=== PATIENT | female | born 1935 | race Caucasian/White ===

== ENCOUNTER 2017-03-26 13:59 | Day surgery (SDC) | payer MEDICARE, BC ==
[~2017-03-26 13:59] MED LIST: ASPI81 PO; ATEN-102 PO; CELE200 PO; CLOP75 PO; DILTCD240 PO; FENO50TA PO; LEVEMIR SC; LEVO50TA4 PO; LORA0.5T PO; NIAC500 PO; NOVOLOG SQ; NOVOLOGP2 SQ
[2017-03-26 14:28] VITALS: BP 142/58; PULSE 58; RESP 20; TEMP 97.5; O2SAT 100
[2017-03-26] MEDS ORDERED: HYDR-3516 PO (14:43)
[2017-03-26] MEDS ORDERED: DILT0.05 PO (14:43)
[2017-03-26] MEDS ORDERED: COLL30T TOPICAL (14:43)
[2017-03-26] MEDS ORDERED: VITATAB11 (14:43)
[2017-03-26] MEDS ORDERED: METO1TAB9 PO (14:43)
[2017-03-26] MEDS ORDERED: COQ150CA (14:43)
[2017-03-26] MEDS ORDERED: LEVEMIR SQ ×2 (14:43)
[2017-03-26] MEDS ORDERED: LORA-392 PO (14:43)
[2017-03-26] MEDS ORDERED: ZANT300T PO (14:43)
[2017-03-26] MEDS ORDERED: PLAV75TA29 PO (14:43)
[2017-03-26] MEDS ORDERED: VITA500T4 PO (14:43)
[2017-03-26] MEDS ORDERED: LEVO75TA3 PO (14:43)
[2017-03-26] MEDS ORDERED: CHOL10008 PO (14:43)
[2017-03-26] MEDS ORDERED: ASPI-516 CHEW (14:43)
--- NOTE | 2017-03-26 16:26 | PD.RAD ---
Radiology Post PICC Prog Note Pre Procedure Diagnosis: (1) Osteomyelitis (2) Lack of intravenous access Post Procedure Diagnosis: (1) Osteomyelitis (2) Lack of intravenous access Procedure: Right PICC line placement Procedure Date: Mar 26, 2017 Supervising Radiologist Cm Burgess Proceduralist/Assist: Maria T Rodas, RT(R)(), Caitlin Coreas, RT(R) Device Side: Right Slovak: 4 single lumen Catheter: Power PICC Plan of Activity Patient to Unit: Nursing Unit Patient Condition: Good PICC line can be used immediately Cm Burgess MD Mar 26, 2017 16:26
[2017-03-26] MEDS ORDERED: SODIUM CHLORIDE 0.9% FLUSH 10 ML FLUSH IVF PRN ×2 (16:30)
[2017-03-27] MEDS ORDERED: SODIUM CHLORIDE 0.9% FLUSH 10 ML FLUSH IVF SCH (09:00)
--- NOTE | 2017-03-27 13:19 | RADRPT ---
EXAM DATE/TIME: 03/26/2017 14:31 [place] COMPARISON: No previous studies available for comparison. INDICATIONS : Patient presents with osteomylitis and is in need of a PICC placement. MEDICAL HISTORY : DM, HTN, PVD, FX LT Ankle, LT Ankle wound, Osteomylitis, Hypothyroid SURGICAL HISTORY : Vascular procedures ENCOUNTER: Initial ACUITY: 3 days PAIN SCORE: 5/10 LOCATION: Left foot FLUORO TIME: 0.2 minutes IMAGE SERIES: 3 ACCESS: Right basilic vein DEVICE(S): 1.) 4 Hungarian single lumen 35 cm Xcela Power PICC PROCEDURE : 1. Ultrasound guidance for venous catheterization. 2. Fluoroscopic guidance. 3. Ultrasound & fluoroscopic guided central venous Power PICC line placement. The risks, benefits and alternatives to the procedure were explained and verbal and written consent w as obtained. The site was prepped in sterile fashion. Full sterile technique was used, including ca p, mask, sterile gloves and gown and a large sterile sheet. Hand hygiene and 2% chlorhexidine prep w as utilized per protocol for cutaneous antisepsis with appropriate dry time for site. Sterile gel a nd sterile probe cover were utilized for ultrasound guidance. The skin and subcutaneous tissues wer e infiltrated with local anesthetic solution. Under direct ultrasound guidance, a suitable vein was accessed and a measuring guidewire was introduc ed and positioned in the central venous system. The ultrasound images depicting access guidance were saved and stored to PACS for permanent record. A Power Injectable PICC line was cut to prescribed length and introduced, positioned with tip at the cavoatrial junction level. The line was flushed and secured per protocol. CONCLUSION: 1. Uncomplicated central venous Power PICC line placement. 2. The PICC line can be used immediately. Cm Burgess MD on March 27, 2017 at 13:16 Board Certified Radiologist. This report was verified electronically.
== END 2017-03-26 16:00 | disposition home or self-care (01) ==
LOC: HROP 13:59 → HRIP 13:59 → HROP 16:00
PROVIDERS: ATTEND Specialist
DX: Z45.2 Encounter for adjustment and management of vascular access device (principal); M86.672 Other chronic osteomyelitis, left ankle and foot; I10 Essential (primary) hypertension; E03.9 Hypothyroidism, unspecified
CPT/HCPCS: 36569; 76937; 77001; C1751; J1642

== ENCOUNTER 2018-01-18 19:59 | Observation (INO) ==
[2018-01-18] MEDS ORDERED: Morphine Sulfate Inj 2 MG/ML Vial IV.PUSH ONE ×2 (20:32→21:37)
[2018-01-18] MEDS ORDERED: Sodium Chlor 0.9% Inj 250 ML IV.SIG ONE (20:33)
--- NOTE | 2018-01-18 20:57 | XR ---
EXAM DATE: 01/18/2018 8:32 PM EDT AGE/SEX: 82 years / Female INDICATIONS: Left ankle osteomyelitis, recent fall today. CLINICAL DATA: This is the patient's initial encounter. Patient reports that signs and symptoms have been present for 1 day and indicates a pain score of 10/10. MEDICAL/SURGICAL HISTORY: . Left foot fracture, osteomyelitis from cast. None. COMPARISON: . FINDINGS: AP, lateral and oblique views of the left ankle were obtained and demonstrate diffuse moderate to sev ere osteopenia. There is an acute mildly comminuted fracture deformity involving the distal tibia naomy roximately 8 cm above the level of the ankle mortise. There is also a nondisplaced comminuted fractur e the distal fibula located approximately 3 cm above the level of the ankle mortise. Degenerative gabby nges are noted involving the tibiotalar joint with sclerosis and mild narrowing. Degenerative changes are present throughout the mid hindfoot. There is a moderate-sized spur off the inferior calcaneus a t the site of attachment. Fibrosis. CONCLUSION: 1. Fractures of the distal tibia and fibula. 2. Moderate to severe osteopenia. Electronically signed by: Torey Vieyra MD 01/18/2018 8:56 PM EDT
--- NOTE | 2018-01-18 21:02 | XR ---
EXAM DATE: 01/18/2018 8:32 PM EDT AGE/SEX: 82 years / Female INDICATIONS: Left tibia pain after fall. CLINICAL DATA: This is the patient's initial encounter. Patient reports that signs and symptoms have been present for 1 day and indicates a pain score of 10/10. MEDICAL/SURGICAL HISTORY: . 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 None. COMPARISON: [facility], ANKLE COMPLETE LEFT MIN 3V, 01/18/2018. . FINDINGS: AP and lateral views of the left tibia and fibula were obtained and demonstrate a mildly comminuted f racture deformity involving the junction of the mid and distal fibula with only mild distraction of t he fracture fragments and no abnormal angulation. There is also mildly comminuted fracture deformity of the more distal fibula proximally several centimeters from the ankle mortise. Proximal tibia and f ibula are intact in appearance. There is diffuse moderate osteopenia. There is apparent old fracture deformity involving the proximal fibula. Vascular calcifications are present. There is mild soft tiss ue swelling. CONCLUSION: 1. Mildly comminuted fracture deformity at the junction of the mid and distal two thirds of the tibi a. 2. Mildly comminuted fracture the more distal fibula. 3. Apparent old fracture deformity of the proximal fibula. 4. Moderate osteopenia. Electronically signed by: Torey Vieyra MD 01/18/2018 9:01 PM EDT
--- NOTE | 2018-01-18 21:18 | ED ---
HPI General Chief Complaint: Extremity Injury, Lower Stated Complaint: Medical / [employer] Time Seen by Provider: 01/18/18 20:23 Source: patient Mode of arrival: EMS Limitations: no limitations History of Present Illness HPI Narrative: 82 YO F with PMH of CHF, DM, HTN presents to the ED via EMS for evaluation of 1010 left leg pain. Onset just before arrival. NO alleviating or exacerbating factors reported. The patient states that she is wheelchair bound 2 /2 ankle fracture and subsequent osteomyelitis. She states that she was sitting on the edge of the bed, reaching to put clothes away when she slid and fell. She states that she was able to partially catch herself, but reports hearing a crack with the fall. She denies hitting her head or LOC. She denies other pains or orthopedic injury. She states that she called her home health nurse who called EMS. She is unsure what medications that she takes, states that her daughter is OTW with that info. Related Data Home Medications Medication Instructions Recorded Confirmed Unable to Obtain Home Meds 01/18/18 01/18/18 Allergies Allergy/AdvReac Type Severity Reaction Status Date / Time Penicillins Allergy Agitation Verified 01/18/18 20:19 Wihubzv-Omz-Uad Reductase Allergy Abdominal Verified 01/18/18 20:19 Inhibitor Pain Review of Systems ROS: all other systems reviewed are negative [facility] Medical History Medical History Diabetes mellitus (Acute) History of stent insertion of renal artery (Acute) Hypertension (Acute) Myocardial infarct (Acute) Surgical History Surgical History H/O heart artery stent (Acute) Social History Social History Second Hand Smoke Exposure: No Smoking Status: Never smoker How Often Do You Have a Drink Containing Alcohol: Never Recent Travel in [facility] within the Last 8 Weeks: No Recent Out of Country Travel within the Last 8 Weeks: No Immunization History Tetanus Immunization: Unsure Exam Narrative Exam Narrative: GENERAL: Well-nourished, well-developed, pleasant white female in no acute distress. SKIN: Focused skin assessment warm/dry. HEAD: Atraumatic. Normocephalic. EYES: Pupils equal and round. No scleral icterus. No injection or drainage. ENT: No nasal bleeding or discharge. Mucous membranes pink and moist. NECK: Trachea midline. No JVD. CARDIOVASCULAR: Regular rate and rhythm. No murmur appreciated. RESPIRATORY: No accessory muscle use. Clear to auscultation. Breath sounds equal bilaterally. GASTROINTESTINAL: Abdomen soft, non-tender, nondistended. Hepatic and splenic margins not palpable. MUSCULOSKELETAL: No obvious deformities. No clubbing. No cyanosis. No edema. Focused left lower extremity exam: Palpable DP pulse. Patient is able to wiggle the toes, neurovascularly intact distally. NEUROLOGICAL: Awake and alert. No obvious cranial nerve deficits. Motor grossly within normal limits. Normal speech. PSYCHIATRIC: Appropriate mood and affect; insight and judgment normal. Course Initial Documented Vital Signs Temperature 98.5 F 01/18/18 20:14 Pulse Rate 95 H 01/18/18 20:14 Respiratory Rate 16 01/18/18 20:14 Blood Pressure 198/80 H 01/18/18 20:14 Pulse Oximetry 96 01/18/18 20:14 Last Documented Vital Signs Temperature 98.5 F 01/18/18 20:14 Pulse Rate 95 H 01/18/18 20:14 Respiratory Rate 16 01/18/18 20:14 Blood Pressure 198/80 H 01/18/18 20:14 Pulse Oximetry 96 01/18/18 20:14 Medical Decision Making MDM Narrative Medical decision making narrative: 82-year-old female with PMH of HTN, DM, CHF presents the ED via EMS for evaluation of 10 out of 10 left leg pain. Onset just before arrival when the patient slid out of the bed falling onto her left leg. She states that she has been nonambulatory on the left leg for approximately 1 year secondary to ankle fracture and subsequent osteomyelitis. She reports hearing a snap at the time. Patient arrives with the leg in a cardboard splint. She is able to wiggle the toes and is neurovascularly intact distally. Patient was administered 2 mg morphine, 250 mL's normal saline. X- rays confirm comminuted tibia and fibula fractures. I spoke with Dr. Ibarra who requests that the patient be admitted to the medicine service and made NPO at midnight. He plans surgery tomorrow. The patient was placed in a splint by the orthopedic techs. I spoke with Dr. Tiwari who agrees to accept the patient to the medicine service. Please see medicine and ortho notes for disposition. Medical Screen Exam Complete: Yes Emergency Medical Condition: Yes Differential Diagnosis Differential Diagnosis: Tibia fracture versus fibular fracture versus osteomyelitis versus fall from standing versus other Lab Data Result diagrams: 01/18/18 21:00 01/18/18 21:00 Lab Results 01/18/18 01/18/18 Range/Units 21:00 21:00 WBC 10.2 (4.0-11.0) th/mm3 RBC 4.25 (4.00-5.30) mil/mm3 Hgb 11.6 (11.6-15.3) gm/dL Hct 36.6 (35.0-46.0) % MCV 86.0 (80.0-100.0) fL MCH 27.4 (27.0-34.0) pg MCHC 31.9 L (32.0-36.0) % RDW 16.7 (11.6-17.2) % Plt Count 276 (150-450) th/mm3 MPV 8.3 (7.0-11.0) fL Neut % (Auto) 63.2 (16.0-70.0) % Lymph % (Auto) 25.5 (9.0-44.0) % [place] % (Auto) 7.6 (0.0-8.0) % Eos % (Auto) 3.3 (0.0-4.0) % Baso % (Auto) 0.4 (0.0-2.0) % Neut # (Auto) 6.4 (1.8-7.7) th/mm3 Lymph # (Auto) 2.6 (1.0-4.8) th/mm3 [place] # (Auto) 0.8 (0.0-0.9) th/mm3 Eos # (Auto) 0.3 (0.0-0.4) th/mm3 Baso # (Auto) 0.0 (0.0-0.2) th/mm3 WBC Differential . Differential Comment Auto diff final Sodium 137 (136-145) meq/L Potassium 3.8 (3.5-5.1) meq/L Chloride 103 (98-107) meq/L Carbon Dioxide 25.7 (21.0-32.0) meq/L Anion Gap 8 (5-15) meq/L BUN 30 H (7-18) mg/dL Creatinine 1.55 H (0.50-1.00) mg/dL Estimated GFR 32 L (>89) mL/min Random Glucose 99 (74-106) mg/dL Calcium 8.9 (8.5-10.1) mg/dL Total Bilirubin 0.3 (0.2-1.0) mg/dL AST 14 L (15-37) U/L ALT 17 (10-53) U/L Alkaline Phosphatase 86 (45-117) U/L Total Protein 7.5 (6.4-8.2) g/dL Albumin 3.3 L (3.4-5.0) g/dL Imaging Data Radiologist's impression: Ankle X-Ray 01/18/18 20:32 CONCLUSION: 1. Fractures of the distal tibia and fibula. 2. Moderate to severe osteopenia. Tibia/Fibula X-Ray 01/18/18 20:32 CONCLUSION: 1. Mildly comminuted fracture deformity at the junction of the mid and distal two thirds of the tibia. 2. Mildly comminuted fracture the more distal fibula. 3. Apparent old fracture deformity of the proximal fibula. 4. Moderate osteopenia. Chest X-Ray 01/18/18 21:05 CONCLUSION: Minimal basilar atelectasis. No effusion or pneumothorax. ECG Data Attestation: I personally reviewed and interpreted this ECG as follows: (Rate 73 , sinus rhythm. OR interval 203, QRS 99, QTc 427 ms. Normal axis. No acute ST changes.) Discharge Plan Discharge Disposition Patient Disposition: 30 Still Patient Physicians Team ED Provider: Miles Phillip ED Midlevel Provider: Janie Martins Rxs /Orders / Referrals /Forms Prescriptions: No Action Unable to Obtain Home Meds RF: 0 Status ED Status: Admitted Patient
[2018-01-18 21:42] LABS: Baso % (Auto) 0.4 % (0.0-2.0); Eos # (Auto) 0.3 th/mm3 (0.0-0.4); Eos % (Auto) 3.3 % (0.0-4.0); Hematocrit 36.6 % (35.0-46.0); Hemoglobin 11.6 gm/dL (11.6-15.3); Lymph # (Auto) 2.6 th/mm3 (1.0-4.8); Lymph % (Auto) 25.5 % (9.0-44.0); Mean Corpuscular HGB Conc 31.9 % (32.0-36.0); Mean Corpuscular Hemoglobin 27.4 pg (27.0-34.0); Mean Platelet Volume 8.3 fL (7.0-11.0); Mono # (Auto) 0.8 th/mm3 (0.0-0.9); Mono % (Auto) 7.6 % (0.0-8.0); Neut # (Auto) 6.4 th/mm3 (1.8-7.7); Neut % (Auto) 63.2 % (16.0-70.0); Platelet Count 276 th/mm3 (150-450); Red Blood Count 4.25 mil/mm3 (4.00-5.30); Red Cell Distribution Width 16.7 % (11.6-17.2); White Blood Count 10.2 th/mm3 (4.0-11.0)
--- NOTE | 2018-01-18 21:48 | XR ---
EXAM DATE: 01/18/2018 9:05 PM EDT AGE/SEX: 82 years / Female INDICATIONS: Evaluate for pneumonia, pneumothorax, or communicable disease. Pre op tibia ORIF. CLINICAL DATA: This is the patient's initial encounter. Patient reports that signs and symptoms have been present for 1 day and indicates a pain score of 0/10. MEDICAL/SURGICAL HISTORY: Diabetes mellitus type II. Congestive heart failure. Hypertension. Coronary artery stent. COMPARISON: [facility] [place]ST SINGLE AP, 04/06/2011. . FINDINGS: A single AP view of the chest demonstrates cardiomegaly. Minimal basilar atelectasis. No significant effusion. No pneumothorax. CONCLUSION: Minimal basilar atelectasis. No effusion or pneumothorax. Electronically signed by: Dwaine Godfrey MD 01/18/2018 9:46 PM EDT
[2018-01-18 21:56] LABS: Albumin 3.3 g/dL (3.4-5.0); Anion Gap 8 meq/L (5-15); Aspartate Aminotransferase 14 U/L (15-37); Blood Urea Nitrogen 30 mg/dL (7-18); Calcium 8.9 mg/dL (8.5-10.1); Carbon Dioxide 25.7 meq/L (21.0-32.0); Chloride 103 meq/L (98-107); Glomerular Filtration Rate 32 mL/min (>89); Glucose,Random 99 mg/dL (74-106); Potassium 3.8 meq/L (3.5-5.1); Sodium 137 meq/L (136-145)
[2018-01-18 21:57] LABS: Alanine Aminotransferase 17 U/L (10-53)
[2018-01-18 21:59] LABS: Alkaline Phosphatase 86 U/L (45-117); Total Protein 7.5 g/dL (6.4-8.2)
[2018-01-18] MEDS ORDERED: Acetaminophen 325 MG Tablet PO PRN (22:55)
[2018-01-18] MEDS ORDERED: Bisacodyl 10 MG Supp RECTAL PRN (22:55)
[2018-01-18] MEDS ORDERED: Dextrose 50% in Water 50 ML Vial IV.PUSH PRN (23:00)
--- NOTE | 2018-01-18 23:14 | P.HP ---
History of Present Illness Service: [facility] Primary Care Physician: UNKNOWN History of Present Illness: 82-year-old female with a past medical history significant for hypertension, coronary artery disease status post stent placement, peripheral vascular disease , chronic kidney disease, diabetes mellitus and hyperlipidemia presents to the emergency department for evaluation of a left lower extremity injury. The patient reports she was sitting on the bed reaching to put close on a shelf when she slipped off the bed and fell. She has been wheelchair-bound since November 2016 when she broke her foot and subsequently developed chronic wounds. She has been seeing wound care who just released her from clinic this week. She reports that she was just cleared to start weightbearing on her left leg next week. The patient denies any loss of consciousness or head trauma. No chest pain or shortness of breath. No abdominal pain. No nausea/vomiting/ diarrhea. No fever/chills. No lateralizing signs/symptoms. 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 - Medical History Medical History: Medical History (Last Updated 01/18/18 @ 23:03 by Nola Tiwari MD) Chronic kidney disease Coronary artery disease Diabetes mellitus History of stent insertion of renal artery Hyperlipidemia Hypertension Myocardial infarct Peripheral vascular disease - Surgical History Surgical History: Surgical History (Last Updated 01/18/18 @ 23:04 by Nola Tiwari MD) H/O heart artery stent History of renal stent Status post cholecystectomy Status post tonsillectomy - Family History Family History: Family History (Last Updated 01/18/18 @ 23:04 by Nola Tiwari MD) Other Coronary artery disease Diabetes mellitus - Tobacco History Second Hand Smoke Exposure: No Smoking Status: Never smoker - Alcohol History How Often Do You Have a Drink Containing Alcohol: Never - Travel History Recent Travel in the [place] Within the Last 8 Weeks: No Recent Travel Out of the Country Within the Last 8 Weeks: No - Immunization History Tetanus Immunization: Unsure Medications and Allergies Active Medications: Active Medications Acetaminophen (Tylenol) 650 mg PO Q4H PRN PRN Reason: Temp > 100.4 Bisacodyl (Dulcolax Supp) 10 mg RECTAL DAILY PRN PRN Reason: SEVERE CONSITIPATION Ondansetron HCl (Zofran Inj) 4 mg IV.PUSH Q6H PRN PRN Reason: NAUSEA OR VOMITING Sennosides (Senokot) 17.2 mg PO Q12H PRN PRN Reason: Moderate Constipation Allergies Allergy/AdvReac Type Severity Reaction Status Date / Time Penicillins Allergy Agitation Verified 01/18/18 20:[address] [place]-Gzc Reductase Allergy Abdominal Verified 01/18/18 20:19 Inhibitor Pain Home Medications Medication Instructions Recorded Confirmed Type Unable to Obtain Home Meds 01/18/18 01/18/18 History Exam Vital signs: Vital Signs 01/18/18 20:14 Temperature 98.5 F Pulse Rate 95 H Respiratory Rate 16 Blood Pressure 198/80 H Pulse Oximetry 96 Intake & Output 01/18/18 01/18/18 01/19/18 06:59 18:59 06:59 Weight 75 kg Narrative: Gen.: No acute distress Head: Normocephalic. Atraumatic. EENT: Pupils equal round and reactive to light. Nose without drainage. Airway intact. Throat without injection. Cardiovascular: Regular rate and rhythm. No murmurs, rubs or gallops. Respiratory: Lungs clear to auscultation bilaterally. No wheezes or rhonchi. Abdomen: Soft, nontender, nondistended. No peritoneal signs. Musculoskeletal: No gross deformities. No edema. Left lower extremity neurovascularly intact. Skin: No obvious rashes or erythema. Neuro: Sensory and motor grossly intact. Cranial nerves II through XII grossly intact. Results - Labs CBC & Chem 7: 01/18/18 21:00 01/18/18 21:00 Labs: Laboratory Results - last 24 hr 01/18/18 01/18/18 21:00 21:00 WBC 10.2 RBC 4.25 Hgb 11.6 Hct 36.6 MCV 86.0 MCH 27.4 MCHC 31.9 L RDW 16.7 Plt Count 276 MPV 8.3 Neut % (Auto) 63.2 Lymph % (Auto) 25.5 [place] % (Auto) 7.6 Eos % (Auto) 3.3 Baso % (Auto) 0.4 Neut # (Auto) 6.4 Lymph # (Auto) 2.6 [place] # (Auto) 0.8 Eos # (Auto) 0.3 Baso # (Auto) 0.0 WBC Differential . Differential Comment Auto diff final Sodium 137 Potassium 3.8 Chloride 103 Carbon Dioxide 25.7 Anion Gap 8 BUN 30 H Creatinine 1.55 H Estimated GFR 32 L Random Glucose 99 Calcium 8.9 Total Bilirubin 0.3 AST 14 L ALT 17 Alkaline Phosphatase 86 Total Protein 7.5 Albumin 3.3 L - Imaging Impressions Ankle X-Ray 01/18/18 20:32 CONCLUSION: 1. Fractures of the distal tibia and fibula. 2. Moderate to severe osteopenia. Tibia/Fibula X-Ray 01/18/18 20:32 CONCLUSION: 1. Mildly comminuted fracture deformity at the junction of the mid and distal two thirds of the tibia. 2. Mildly comminuted fracture the more distal fibula. 3. Apparent old fracture deformity of the proximal fibula. 4. Moderate osteopenia. Chest X-Ray 01/18/18 21:05 CONCLUSION: Minimal basilar atelectasis. No effusion or pneumothorax. Caprini VTE Risk Assessment Caprini VTE Risk Assessment: Moderate/High Risk (score >= 2) Caprini Risk Assessment Model: Point Value = 1 Point Value = 2 Point Value = 3 Point Value = 5 Age 41-60 Minor surgery BMI > 25 kg/m2 Swollen legs Varicose veins or History of unexplained or recurrent spontaneous Oral contraceptives or hormone replacement Sepsis (< 1 month) Serious lung disease, including pneumonia (< 1 month) Abnormal pulmonary function Acute myocardial infarction Congestive heart failure (< 1 month) History of inflammatory bowel disease Medical patient at bed rest Age 61-74 Arthroscopic surgery Major open surgery (> 45 min) Laparoscopic surgery (> 45 min) Malignancy Confined to bed (> 72 hours) Immobilizing plaster cast Central venous access Age >= 75 History of VTE Family history of VTE Factor V Leiden Prothrombin [id number] Lupus anticoagulant Anticardiolipin antibodies Elevated serum homocysteine Heparin-induced thrombocytopenia Other congenital or acquired thrombophilia Stroke (< 1 month) Elective arthroplasty Hip, pelvis, or leg fracture Acute spinal cord injury (< 1 month) Prophylaxis Regimen: Total Risk Factor Score Risk Level Prophylaxis Regimen 0-1 Low Early ambulation 2 Moderate Order ONE of the following: *Sequential Compression Device (SCD) *Heparin 5000 units SQ BID 3-4 Higher Order ONE of the following medications: *Heparin 5000 units SQ TID *Enoxaparin/Lovenox 40 mg SQ daily (WT < 150 kg, CrCl > 30 mL/min) *Enoxaparin/Lovenox 30 mg SQ daily (WT < 150 kg, CrCl > 10-29 mL/min) *Enoxaparin/Lovenox 30 mg SQ BID (WT < 150 kg, CrCl > 30 mL/min) AND/OR *Sequential Compression Device (SCD) 5 or more Highest Order ONE of the following medications: *Heparin 5000 units SQ TID (Preferred with Epidurals) *Enoxaparin/Lovenox 40 mg SQ daily (WT < 150 kg, CrCl > 30 mL/min) *Enoxaparin/Lovenox 30 mg SQ daily (WT < 150 kg, CrCl > 10-29 mL/min) *Enoxaparin/Lovenox 30 mg SQ BID (WT < 150 kg, CrCl > 30 mL/min) AND *Sequential Compression Device (SCD) Assessment and Plan - Plan Assessment/plan: 1. Left tib/fib fracture X-ray significant for distal fibula and mid distal tibia fractures Orthopedic surgery consulted, appreciate recommendations 2. Diabetes mellitus Sliding-scale insulin Holding home Levemir as patient n.p.o. Monitor blood glucose 3. Chronic kidney disease Creatinine 1.55, baseline 1.1 IV fluid hydration Monitor renal function 4. Coronary artery disease/peripheral vascular disease Patient is status post coronary artery stenting, renal artery stenting and lower extremity stenting Continue home medications once reconciled 5. Hypertension/hyperlipidemia Continue home medications once reconciled FEN N.p.o. Electrolytes: Monitor and replete as needed NS at 70 cc/hour Holding pharmacologic anticoagulation for operative intervention
[2018-01-18] MEDS ORDERED: Sod Chloride 0.9% Inj 1,000 ML IV.CONT SCH (23:15)
[2018-01-18] MEDS: Morphine Sulfate Inj 2 MG/ML Vial IV.PUSH PRN (23:29)
[2018-01-19] MEDS: Morphine Sulfate Inj 2 MG/ML Vial IV.PUSH PRN ×4 (06:03→21:25)
[2018-01-19] MEDS ORDERED: Chlorhexidine Gluconate 2% 1 Pack (2 Cloths) TOPICAL ONE (06:30)
[2018-01-19] MEDS ORDERED: Sodium Chlor 0.9% Inj 500 ML IV.SIG SCH (07:00)
[2018-01-19 07:54] LABS: Baso % (Auto) 0.3 % (0.0-2.0); Eos # (Auto) 0.2 th/mm3 (0.0-0.4); Eos % (Auto) 2.3 % (0.0-4.0); Hematocrit 33.7 % (35.0-46.0); Hemoglobin 10.8 gm/dL (11.6-15.3); Lymph # (Auto) 1.2 th/mm3 (1.0-4.8); Lymph % (Auto) 17.6 % (9.0-44.0); Mean Corpuscular HGB Conc 32.2 % (32.0-36.0); Mean Corpuscular Hemoglobin 28.1 pg (27.0-34.0); Mean Corpuscular Volume 87.5 fL (80.0-100.0); Mean Platelet Volume 8.1 fL (7.0-11.0); Mono # (Auto) 0.7 th/mm3 (0.0-0.9); Mono % (Auto) 10.3 % (0.0-8.0); Neut # (Auto) 4.8 th/mm3 (1.8-7.7); Neut % (Auto) 69.5 % (16.0-70.0); Platelet Count 226 th/mm3 (150-450); Red Blood Count 3.85 mil/mm3 (4.00-5.30); Red Cell Distribution Width 16.5 % (11.6-17.2); White Blood Count 6.9 th/mm3 (4.0-11.0)
[2018-01-19] MEDS: Insulin NovoLOG Aspart Correctional Sugar Inj SQ SCH ×4 (07:57→21:29)
[2018-01-19 08:29] LABS: Carbon Dioxide 26.8 meq/L (21.0-32.0)
[2018-01-19 08:35] LABS: Calcium 8.7 mg/dL (8.5-10.1)
[2018-01-19 08:38] LABS: Potassium 4.5 meq/L (3.5-5.1)
[2018-01-19] MEDS ORDERED: Clindamycin Inj 900 MG/6 ML Vial ONE (13:09)
[2018-01-19] MEDS ORDERED: Bupivacaine/Epinephrine Inj 0.25% 50 ML Vial ONE (14:02)
[2018-01-19] MEDS ORDERED: Glycopyrrolate Inj 1 MG/5 ML Syringe IV.PUSH ONE (14:36)
[2018-01-19] MEDS ORDERED: Neostigmine Inj 5 MG/5 ML Syringe IV.PUSH ONE (14:36)
[2018-01-19] MEDS ORDERED: Lidocaine PF 1% Inj 5 ML Syringe OTHER ONE (14:36)
--- NOTE | 2018-01-19 16:04 | P.CONOP ---
[facility] Orthopedics Consult Note - [facility] Consult date: 01/19/18 Chief complaint: Left Tib-Fib Fractures Narrative: Reny is a pleasant 82-year-old female. She has a history of hypertension, coronary artery disease, peripheral vascular disease, diabetes, renal failure, and high cholesterol. She was sitting on her bed getting dressed. She fell. Her left leg twisted. She had immediate left leg pain. She was unable to stand or ambulate. She had a left foot fracture in 2017. She initially treated with a cast. She developed skin ulcerations. She has just completed wound care for treatment of skin ulcerations. She has been mostly wheelchair- bound secondary to foot ulcerations. Currently her left leg hurts with motion. Pain is improved with rest. She denies dizziness, syncope, or loss of consciousness. Review of Systems Patient denies fevers, chills, weight loss, headache, visual changes, hearing loss, chest pain, palpitations, shortness of breath, nausea, vomiting, no urinary changes, diarrhea, bowel changes, neck pain, back pain, skin rashes, weakness of extremities, easy bleeding, enlarged lymph nodes, numbness of extremities, anxiety, or depression. She complains of left leg and ankle pain. Patient's social history, past medical history, and family history were reviewed on chart and with patient. [facility] - History History Provided By: Patient - Medical History Medical History: Medical History (Last Reviewed 01/19/18 @ 16:02 by Virgil Clark MD) Chronic kidney disease Coronary artery disease Diabetes mellitus History of stent insertion of renal artery Hyperlipidemia Hypertension Myocardial infarct Peripheral vascular disease - Surgical History Surgical History: Surgical History (Last Reviewed 01/19/18 @ 16:02 by Virgil Clark MD) H/O heart artery stent History of renal stent Status post cholecystectomy Status post tonsillectomy - Family History Family History: Family History (Last Reviewed 01/19/18 @ 16:02 by Virgil Clark MD) Other Coronary artery disease Diabetes mellitus - Social History I have reviewed the patient's Social History: Yes - Tobacco History Second Hand Smoke Exposure: No Smoking Status: Never smoker - Alcohol History How Often Do You Have a Drink Containing Alcohol: Never - Substance Use History Substance History: No History of Abuse - Travel History Recent Travel in the [facility] Within the Last 8 Weeks: No Recent Travel Out of the Country Within the Last 8 Weeks: No - Immunization History Tetanus Immunization: Unsure Medications and Allergies Active Medications: Active Medications Acetaminophen (Tylenol) 650 mg PO Q4H PRN PRN Reason: Temp > 100.4 Bisacodyl (Dulcolax Supp) 10 mg RECTAL DAILY PRN PRN Reason: SEVERE CONSITIPATION Dextrose (D50w Vial) 50 ml IV.PUSH UNSCH PRN PRN Reason: PER HYPOGLYCEMIA PROTOCOL Glucagon (Glucagon Inj) 1 mg OTHER PRN PRN PRN Reason: for Hypoglycemia Protocol Sodium Chloride (Ns Inj) 1,000 mls @ 70 mls/hr IV.CONT .Q84C05V [facility] Last Admin: 01/18/18 23:29 Dose: 70 mls/hr Lactated Ringer's (Lr 1000 Ml Inj) 1,000 mls @ 30 mls/hr IV.SIG .Q24H [facility] Stop: 01/20/18 06:29 Last Admin: 01/19/18 10:56 Dose: 30 mls/hr Sodium Chloride (Ns Inj) 500 mls @ 30 mls/hr IV.SIG .Q10H [facility] Last Admin: 01/19/18 10:57 Dose: Not Given Lactated Ringer's (Lr 1000 Ml Inj) 1,000 mls @ 50 mls/hr IV.CONT .Q20H [facility] Insulin Aspart (Novolog Insulin Correctional Sugar Inj) 0 unit SQ ACHS [facility]; Protocol Last Admin: 01/19/18 13:23 Dose: Not Given Morphine Sulfate (Morphine Inj) 2 mg IV.PUSH Q3H PRN PRN Reason: pain > 4 Last Admin: 01/19/18 13:09 Dose: 2 mg Ondansetron HCl (Zofran Inj) 4 mg IV.PUSH Q6H PRN PRN Reason: NAUSEA OR VOMITING Sennosides (Senokot) 17.2 mg PO Q12H PRN PRN Reason: Moderate Constipation Allergies Allergy/AdvReac Type Severity Reaction Status Date / Time Penicillins Allergy Agitation Verified 01/18/18 20:19 Flvxulb-Vpz-Thd Reductase Allergy Abdominal Verified 01/18/18 20:19 Inhibitor Pain Home Medications Medication Instructions Recorded Confirmed Type amlodipine 5 mg PO DAILY 01/19/18 01/19/18 History aspirin 81 mg PO DAILY 01/19/18 01/19/18 History carvedilol 12.5 mg PO BID 01/19/18 01/19/18 History citalopram 10 mg PO DAILY 01/19/18 01/19/18 History clopidogrel [Plavix] 75 mg PO DAILY 01/19/18 01/19/18 History furosemide [Lasix] 40 mg PO DAILY 01/19/18 01/19/18 History insulin detemir U-100 [Levemir 40 units SUBCUT AC 01/19/18 01/19/18 History FlexTouch U-100 Insuln] levothyroxine 75 mcg PO DAILY 01/19/18 01/19/18 History oxycodone-acetaminophen 1 tab PO Q4-6H PRN 01/19/18 01/19/18 History ranitidine HCl [Zantac] 300 mg PO DAILY 01/19/18 01/19/18 History Exam Vital signs: Vital Signs 01/18/18 20:14 01/19/18 00:00 01/19/18 08:00 Temperature 98.5 F 97.5 F L 97.5 F L Pulse Rate 95 H 69 71 Respiratory Rate 16 18 18 Blood Pressure 198/80 H 156/68 H 97/59 L Pulse Oximetry 96 99 99 01/19/18 13:25 Temperature Pulse Rate Respiratory Rate 18 Blood Pressure Pulse Oximetry Intake & Output 01/18/18 01/19/18 01/19/18 18:59 06:59 18:59 Intake Total 250 / 250 1250 / 1250 Output Total 600 / 600 950 / 950 Balance -350 / -350 300 / 300 Weight 75.3 kg Intake: IV 250 / 250 Anesthesia Amount 1250 / 1250 Output: Urine 600 / 600 Estimated Blood Loss 100 / 100 Urine Amount (Catheter) 850 / 850 Indwelling Urethral Catheter 850 / 850 Narrative: Reny is a pleasant 82-year-old female. General: Awake and alert. No acute distress. Appears well-developed well- nourished Head: Normocephalic, atraumatic pupils are equal Neck: Soft, nontender, trachea midline Abdomen: Soft, nondistended Examination of right arm reveals no pain or deformity with shoulder, elbow, or wrist motion. Skin is intact. Radial pulse is palpable. Normal capillary refill in fingers. Sensation is intact in radial, ulnar, and median nerve distributions. Under Sheriff strength is +5. No lymphadenopathy noted. Examination of left arm reveals no pain or deformity with shoulder, elbow, or wrist motion. Skin is intact. Radial pulse is palpable. Normal capillary refill in fingers. Sensation is intact in radial, ulnar, and median nerve distributions. Under Sheriff strength is +5. No lymphadenopathy noted. Examination of left lower extremity reveals no pain or deformity with hip, knee , or ankle motion. Skin is intact. Sensation is intact in left foot. Dorsalis pedis pulse is palpable. Normal capillary refill and feet. Thigh and calf compartments are soft. No lymphadenopathy noted. +5 strength of ankle dorsiflexion and plantarflexion. Examination of right lower extremity reveals no tenderness around her hip. She has tenderness over her tibia and ankle. She has pain with any ankle motion. She has mild swelling around the ankle. skin is intact. Sensation is intact in right foot. Dorsalis pedis pulse is palpable. Normal capillary refill and feet. Thigh and calf compartments are soft. No lymphadenopathy noted. Results - Labs Result Diagrams: 01/19/18 06:13 01/19/18 06:13 Labs: Laboratory Results - last 24 hr 01/18/18 01/18/18 01/19/18 21:00 21:00 06:13 WBC 10.2 6.9 RBC 4.25 3.85 L Hgb 11.6 10.8 L Hct 36.6 33.7 L MCV 86.0 87.5 MCH 27.4 28.1 MCHC 31.9 L 32.2 RDW 16.7 16.5 Plt Count 276 226 MPV 8.3 8.1 Neut % (Auto) 63.2 69.5 Lymph % (Auto) 25.5 17.6 [place] % (Auto) 7.6 10.3 H Eos % (Auto) 3.3 2.3 Baso % (Auto) 0.4 0.3 Neut # (Auto) 6.4 4.8 Lymph # (Auto) 2.6 1.2 [place] # (Auto) 0.8 0.7 Eos # (Auto) 0.3 0.2 Baso # (Auto) 0.0 0.0 WBC Differential . . Differential Comment Auto diff final Auto diff final Sodium 137 Potassium 3.8 Chloride 103 Carbon Dioxide 25.7 Anion Gap 8 BUN 30 H Creatinine 1.55 H Estimated GFR 32 L POC Glucose Random Glucose 99 Calcium 8.9 Total Bilirubin 0.3 AST 14 L ALT 17 Alkaline Phosphatase 86 Total Protein 7.5 Albumin 3.3 L 01/19/18 01/19/18 01/19/18 06:13 07:30 13:06 WBC RBC Hgb Hct MCV MCH MCHC RDW Plt Count MPV Neut % (Auto) Lymph % (Auto) [place] % (Auto) Eos % (Auto) Baso % (Auto) Neut # (Auto) Lymph # (Auto) [place] # (Auto) Eos # (Auto) Baso # (Auto) WBC Differential Differential Comment Sodium 140 Potassium 4.5 Chloride 105 Carbon Dioxide 26.8 Anion Gap 8 BUN 27 H Creatinine 1.37 H Estimated GFR 37 L POC Glucose 152 H 160 H Random Glucose 150 H Calcium 8.7 Total Bilirubin AST ALT Alkaline Phosphatase Total Protein Albumin - Diagnostic results Imaging: Impressions Ankle X-Ray 01/18/18 20:32 CONCLUSION: 1. Fractures of the distal tibia and fibula. 2. Moderate to severe osteopenia. Tibia/Fibula X-Ray 01/18/18 20:32 CONCLUSION: 1. Mildly comminuted fracture deformity at the junction of the mid and distal two thirds of the tibia. 2. Mildly comminuted fracture the more distal fibula. 3. Apparent old fracture deformity of the proximal fibula. 4. Moderate osteopenia. Chest X-Ray 01/18/18 21:05 CONCLUSION: Minimal basilar atelectasis. No effusion or pneumothorax. Ankle/Foot x-ray: report reviewed, image reviewed Assessment and Plan - Assessment and Plan Reny is an 82-year-old female that had a fall resulting in left tibia fracture and left ankle fractures. X-rays were reviewed. The risk and benefits of surgery were discussed in depth with patient. At this point I would recommend intramedullary nail fixation of left tibia with open reduction internal fixation of left ankle. Given patient's previous history of ankle ulcerations and wound problems, I discussed with her limited incision open reduction internal fixation. She understands that she has moderate risk of developing wound problems or infection. The risk and benefits of surgery were discussed in depth with patient. The risk of surgery include bleeding, infection, injuries to arteries, nerves, or blood vessels, infection, wound complications, nonunion, malunion, painful hardware, and need for further surgery. I also discussed medical complications including blood clots, pneumonia, stroke, heart attack, and . Informed consent was obtained and all questions were answered. N.p.o.--plan on surgery this morning Calcium and vitamin D supplementation Physical therapy consult--nonweightbearing left leg Follow-up with Dr. Clark in 2 weeks Moshe, Enid Brown A mid-level provider in my office (nurse practitioner or physician hr assistant) may see this patient on follow-up visits and continue to implement the objectives of this plan including: Starting or adjusting medications, injections , cast application, orthotics, brace application, physical therapy, radiological studies (including x-ray, MRI, CT, ultrasound, bone scan), vascular studies, neurologic studies, specialist consultation, and proceeding with surgical management, as appropriate.
--- NOTE | 2018-01-19 16:08 | ECG ---
Date Performed: 01/18/2018 Time Performed: 20:10:45 PTAGE: 82 years EKG: Sinus rhythm NONSPECIFIC T-WAVE ABNORMALITY Since previous tracing, no significant change noted BORDERLINE ECG PREVIOUS TRACING : 04/07/2011 05.19 DOCTOR: Addison Steiner Interpretating Date/Time 01/19/2018 16:07:47
--- NOTE | 2018-01-19 16:09 | P.OP ---
- Preoperative Diagnosis (1) Fracture of tibial shaft, left, closed (2) Bimalleolar fracture of left ankle Date of procedure: 01/19/18 Procedure: Left tibia intramedullary nail fixation, open reduction internal fixation left bimalleolar ankle fracture Anesthesia: GETA Surgeon: Virgil Clark MD Phlebotomy Technologist: Abelardo Raza PA-C The surgical procedure was assisted by my physician library circulation assistant. My P.A. presence was necessary throughout this case for the manipulation and positioning of the surgical extremity. My P.A. was assisting me throughout the duration of this procedure. The skill set of a physician library circulation assistant was medically necessary to complete this procedure. During the surgical case the consulting technical director was working at the back table and the physician library circulation assistant was directly assisting me. Operation and Findings: Implants: ITS [10]mm x [300]mm tibial nail Plan of activity: Nonweightbearing left ankle Patient was seen and examined preoperatively. An informed consent was obtained from patient after detailed discussion of risk and benefits. Risks of surgery include bleeding, infection, painful hardware, nonunion, malunion, leg length discrepancy, need for hardware removal, and medical complications associated with anesthesia including blood clots, stroke, heart attack, and were discussed. Operative site was marked. Patient was brought to the operating room placed on or table. Patient received IV antibiotics and was given IV sedation GETA. Operative leg was prepped with alcohol Hibiclens and draped in usual sterile fashion. Timeout procedure was performed Procedure began with reduction of left tibia shaft fracture. Traction was applied. Fracture was reduced. There was mild comminution of the fracture. The fracture reduced and excellent alignment was achieved. Next a 3 cm incision was made proximal to the patella. Quadriceps tendon was split in line with fibers. Cannulas were placed in the patellofemoral joint to protect the articular surface at all times. A guidepin was placed into the tibia and advanced in the tibial canal. Fluoroscopy was used to confirm appropriate guidepin placement. An opening reamer was used to open the tibial canal. A ball-tipped guidewire was advanced down the tibial canal. Guidepin was passed across the fracture site into the center of the distal tibia. Fluoroscopy confirmed guidepin placement. The nail length was now measured. The fracture was now held in a reduced position and the canal was reamed. The canal was reamed up to appropriate size. A size 10 mm tibia nail was now selected. Next the nail was fully seated. Using perfect venetie ira technique 2 distal interlocking screws were placed. Using the insertion handle as a guide 2 proximal interlocking screws were placed. Fluoroscopy confirmed excellent of fracture with well-placed hardware. Incisions and the knee joint were thoroughly irrigated with sterile saline. Fascia was closed with #1 Vicryl, subcutaneous tissues closed with 3-0 Vicryl and skin was closed with loree. Next attention was turned towards the left ankle. There was displacement of the medial and lateral malleolus. Because of patient's previous skin ulceration over the medial malleolus, percutaneous reduction was performed. Fracture reduced into appropriate position. 2 small incisions were made distal to the medial malleolus. 2 guidepins for the 4.0 cannulated screws were now placed across the fracture site. Fluoroscopy confirmed appropriate guidepin placement. 2 screws were now placed. Fluoroscopy confirmed appropriate placement of hardware. Next attention was turned towards the fibula. The fibula was manually reduced. A 1 cm incision was made distal to the fibula. A drill hole was made at the tip of the fibula. A Briones mitchell was selected to fit the intramedullary canal of the fibula. The mitchell was now placed through the distal tip of the fibula. The Briones mitchell was advanced across the fracture site into the fibular shaft. Ross be confirmed appropriate reduction of the fibula with appropriate hardware placement. These incisions were closed with 3-0 nylon. Sterile dressings were applied and patient was placed into a well molded well-padded splint.. Patient was awakened and transferred to recovery in stable condition.
--- NOTE | 2018-01-19 16:22 | XR ---
EXAM DATE: 01/19/2018 12:00 AM EDT AGE/SEX: 82 years / Female INDICATIONS: Open reduction internal fixation of the left tibia. CLINICAL DATA: This is the patient's subsequent encounter. Patient reports that signs and symptoms h ave been present for 2 days and indicates a pain score of Nonresponsive. MEDICAL/SURGICAL HISTORY: . 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 None. COMPARISON: . FINDINGS: Examination reveals I am mitchell fixation of the tibia with good reduction of fracture fragments. The mitchell is secured proximally and distal with 2 screws at each site. Partially threaded cortical screws ru erse the medial malleolus. A pin is present across a distal fibular fracture, also with good reductio n of fragments. Hardware is intact throughout. Alignment is anatomic. CONCLUSION: Satisfactory operative appearance Electronically signed by: Chema Rosales MD 01/19/2018 4:21 PM EDT
[2018-01-19] MEDS ORDERED: Sugammadex Inj 200 MG/2 ML Vial IV.PUSH ONE (16:26)
[2018-01-19] MEDS ORDERED: fentaNYL Citrate Inj 100 MCG/2 ML Ampul ONE (16:33)
[2018-01-19] MEDS ORDERED: *morphine SULFATE 4 MG/ML PERIprocedure ONLY ONE ×2 (16:39→16:48)
[2018-01-19] MEDS ORDERED: HYDROmorphone PF Inj 2 MG/ML Vial ONE (16:58)
--- NOTE | 2018-01-19 17:48 | P.PNADD ---
Addendum to Inpatient Note Additional information: Patient is in surgery. Will see patient in the AM.
[2018-01-19] MEDS: Clindamycin 600 mg/NS Premix 600 MG/50 ML PIGGYBACK IV.SIG SCH (23:45)
[2018-01-20] MEDS: Morphine Sulfate Inj 2 MG/ML Vial IV.PUSH PRN ×2 (04:57→08:35)
[2018-01-20] MEDS: Clindamycin 600 mg/NS Premix 600 MG/50 ML PIGGYBACK IV.SIG SCH ×2 (06:21→16:49)
--- NOTE | 2018-01-20 06:44 | P.PNOP ---
Subjective Interval history: POD 1 s/p IMN left tibia with ORIF bimalleolar ankle doing well. states pain and has not been out of bed yet Physical Exam Vital signs: Vital Signs 01/19/18 08:00 01/19/18 13:25 01/19/18 16:25 Temperature 97.5 F L 96.5 F L Pulse Rate 71 82 Respiratory Rate 18 18 10 L Blood Pressure 97/59 L 169/67 H Pulse Oximetry 99 88 L 01/19/18 16:30 01/19/18 16:45 01/19/18 17:00 Temperature Pulse Rate 78 72 67 Respiratory Rate 22 13 13 Blood Pressure 121/60 132/62 116/56 L Pulse Oximetry 96 100 99 01/19/18 17:15 01/19/18 17:30 01/19/18 18:00 Temperature 97.7 F Pulse Rate 66 65 65 Respiratory Rate 14 14 16 Blood Pressure 124/53 L 112/48 L 129/57 L Pulse Oximetry 95 98 99 01/19/18 18:57 01/19/18 19:55 01/19/18 20:00 Temperature 97.7 F 97.7 F Pulse Rate 65 70 72 Respiratory Rate 16 19 Blood Pressure 131/63 137/61 Pulse Oximetry 95 98 01/19/18 23:36 01/20/18 00:00 01/20/18 03:29 Temperature 97.7 F Pulse Rate 68 71 74 Respiratory Rate 19 Blood Pressure 130/59 L Pulse Oximetry 97 01/20/18 04:00 Temperature 97.7 F Pulse Rate 78 Respiratory Rate 18 Blood Pressure 164/66 H Pulse Oximetry 95 Intake & Output 01/19/18 01/19/18 01/20/18 06:59 18:59 06:59 Intake Total 250 / 250 1292 / 1292 50 / 50 Output Total 600 / 600 950 / 950 250 / 250 Balance -350 / -350 342 / 342 -200 / -200 Weight 75.3 kg 77.2 kg Intake: IV 250 / 250 42 / 42 50 / 50 LR 1000 mL Inj 1,000 ML @ 50 42 / 42 mls/hr IV.CONT .Q20H [facility] Rx#: [id number] Cleocin 600 mg/NS Premix 600 mg 50 / 50 In 50 ml @ 100 mls/hr IV.SIG Q8H [facility] Rx#:[id number] Anesthesia Amount 1250 / 1250 Output: Urine 600 / 600 Estimated Blood Loss 100 / 100 Urine Amount (Catheter) 850 / 850 250 / 250 Indwelling Urethral Catheter 850 / 850 250 / 250 Narrative: LLE: +short leg splint. intact. NVI - Urinary Catheter Management Indwelling Urethral Catheter Cath placed during this visit: yes Reason for continuing: Hourly intake/output Insertion date: 01/18/18 Insertion time: 21:20 Results - Labs CBC & Chem 7: 01/19/18 06:13 01/19/18 06:13 Laboratory Results - last 24 hr 01/19/18 01/19/18 01/19/18 06:13 06:13 07:30 WBC 6.9 RBC 3.85 L Hgb 10.8 L Hct 33.7 L MCV 87.5 MCH 28.1 MCHC 32.2 RDW 16.5 Plt Count 226 MPV 8.1 Neut % (Auto) 69.5 Lymph % (Auto) 17.6 [place] % (Auto) 10.3 H Eos % (Auto) 2.3 Baso % (Auto) 0.3 Neut # (Auto) 4.8 Lymph # (Auto) 1.2 [place] # (Auto) 0.7 Eos # (Auto) 0.2 Baso # (Auto) 0.0 WBC Differential . Differential Comment Auto diff final Sodium 140 Potassium 4.5 Chloride 105 Carbon Dioxide 26.8 Anion Gap 8 BUN 27 H Creatinine 1.37 H Estimated GFR 37 L POC Glucose 152 H Random Glucose 150 H Calcium 8.7 01/19/18 01/19/18 01/19/18 13:06 17:14 21:04 WBC RBC Hgb Hct MCV MCH MCHC RDW Plt Count MPV Neut % (Auto) Lymph % (Auto) [place] % (Auto) Eos % (Auto) Baso % (Auto) Neut # (Auto) Lymph # (Auto) [place] # (Auto) Eos # (Auto) Baso # (Auto) WBC Differential Differential Comment Sodium Potassium Chloride Carbon Dioxide Anion Gap BUN Creatinine Estimated GFR POC Glucose 160 H 165 H 159 H Random Glucose Calcium - Imaging Impressions Tibia/Fibula X-Ray 01/19/18 00:00 CONCLUSION: Satisfactory operative appearance Assessment and Plan - Assessment and Plan 1) Left Distal Tibial shaft fx with bimalleolar ankle fx s/p IMN and ORIF - POD 1 -NWB -maintain splint -elevate -CM for rehab placement. patient states she does not want to go to rehab but strongly urged her to as she will be unsafe to go home alone -DVT prophylaxis -f/u claudette Andrews or [facility] in 2 weeks [id number] Prescription Drug Monitoring Database has been queried and verified prior to prescribing the controlled substance. Acute pain exception. This patient has normal, predicted, physiological, and time limited response to an adverse mechanical stimulus associated with surgery, trauma, or acute illness as described in my notes. There is a lack of alternative treatment options other than to include the prescribed narcotic treatment for this condition.
[2018-01-20] MEDS: Rivaroxaban 10 MG Tablet PO SCH (08:33)
--- NOTE | 2018-01-20 10:12 | P.PN ---
Subjective Interval history: Follow-up left lower extremity injury. Complains of lower extremity pain. Agrees to be discharged to rehab. Physical Exam Vital signs: Vital Signs 01/19/18 13:25 01/19/18 16:25 01/19/18 16:30 Temperature 96.5 F L Pulse Rate 82 78 Respiratory Rate 18 10 L 22 Blood Pressure 169/67 H 121/60 Pulse Oximetry 88 L 96 01/19/18 16:45 01/19/18 17:00 01/19/18 17:15 Temperature Pulse Rate 72 67 66 Respiratory Rate 13 13 14 Blood Pressure 132/62 116/56 L 124/53 L Pulse Oximetry 100 99 95 01/19/18 17:30 01/19/18 18:00 01/19/18 18:57 Temperature 97.7 F 97.7 F Pulse Rate 65 65 65 Respiratory Rate 14 16 16 Blood Pressure 112/48 L 129/57 L 131/63 Pulse Oximetry 98 99 95 01/19/18 19:55 01/19/18 20:00 01/19/18 23:36 Temperature 97.7 F Pulse Rate 70 72 68 Respiratory Rate 19 Blood Pressure 137/61 Pulse Oximetry 98 01/20/18 00:00 01/20/18 03:29 01/20/18 04:00 Temperature 97.7 F 97.7 F Pulse Rate 71 74 78 Respiratory Rate 19 18 Blood Pressure 130/59 L 164/66 H Pulse Oximetry 97 95 01/20/18 08:00 Temperature 97.7 F Pulse Rate 79 Respiratory Rate 19 Blood Pressure 148/71 H Pulse Oximetry 100 Intake & Output 01/19/18 01/20/18 01/20/18 18:59 06:59 18:59 Intake Total 1292 / 1292 50 / 50 50 / 50 Output Total 950 / 950 250 / 250 Balance 342 / 342 -200 / -200 50 / 50 Weight 77.2 kg Intake: IV 42 / 42 50 / 50 50 / 50 LR 1000 mL Inj 1,000 ML @ 50 42 / 42 mls/hr IV.CONT .Q20H [facility] Rx#: [id number] Cleocin 600 mg/NS Premix 600 mg 50 / 50 50 / 50 In 50 ml @ 100 mls/hr IV.SIG Q8H [facility] Rx#:[id number] Anesthesia Amount 1250 / 1250 Output: Estimated Blood Loss 100 / 100 Urine Amount (Catheter) 850 / 850 250 / 250 Indwelling Urethral Catheter 850 / 850 250 / 250 Narrative: Gen.: No acute distress Cardiovascular: Regular rate and rhythm. No murmurs, rubs or gallops. Respiratory: Lungs clear to auscultation bilaterally. No wheezes or rhonchi. Abdomen: Soft, nontender, nondistended. No peritoneal signs. Musculoskeletal: No gross deformities. No edema. Left lower extremity with thick clean bandage Skin: No obvious rashes or erythema. Neuro: Sensory and motor grossly intact. Cranial nerves II through XII grossly intact. - Urinary Catheter Management Indwelling Urethral Catheter Cath placed during this visit: yes Reason for continuing: Hourly intake/output Insertion date: 01/18/18 Insertion time: 21:20 Results - Labs CBC & Chem 7: 01/19/18 06:13 01/19/18 06:13 Laboratory Results - last 24 hr 01/19/18 01/19/18 01/19/18 13:06 17:14 21:04 POC Glucose 160 H 165 H 159 H 01/20/18 08:32 POC Glucose 152 H - Imaging Impressions ITS Impressions Ankle X-Ray 01/18/18 20:32 CONCLUSION: 1. Fractures of the distal tibia and fibula. 2. Moderate to severe osteopenia. Chest X-Ray 01/18/18 21:05 CONCLUSION: Minimal basilar atelectasis. No effusion or pneumothorax. Tibia/Fibula X-Ray 01/19/18 00:00 CONCLUSION: Satisfactory operative appearance - Procedures IMN left tibia with ORIF bimalleolar ankle Assessment and Plan - Plan 1. Left tib/fib fracture X-ray significant for distal fibula and mid distal tibia fractures s/p IMN left tibia with ORIF bimalleolar ankle Nonweightbearing. Continue postoperative care with PT, wound care and pain management consult regarding narcotics. Orthopedic surgery recommends rehab 2. Diabetes mellitus Sliding-scale insulin Restart Levemir Monitor blood glucose 3. Acute on chronic kidney disease stage III Creatinine 1.55, baseline 1.1 IV fluid hydration Monitor renal function 4. Coronary artery disease/peripheral vascular disease Patient is status post coronary artery stenting, renal artery stenting and lower extremity stenting Continue home medications. Restart antiplatelets when cleared by orthopedic surgery 5. Hypertension/hyperlipidemia Continue home medications DVT prophylaxis with Xarelto Discharge Planning: Per [facility] to rehab
[2018-01-20] MEDS ORDERED: Naloxone Inj 0.4 MG/ML Vial IV.PUSH PRN (10:16)
[2018-01-20] MEDS ORDERED: Acetaminophen 325 MG Tablet PO PRN (10:16)
[2018-01-20] MEDS: Insulin NovoLOG Aspart Correctional Sugar Inj SQ SCH ×4 (10:28→20:32)
[2018-01-20] MEDS: oxyCODONE/Acetaminophen 10/325 Tablet PO PRN ×3 (10:31→23:54)
[2018-01-20] MEDS: Carvedilol 12.5 MG Tablet PO SCH ×2 (19:35→20:27)
[2018-01-20] MEDS: Levothyroxine 75 MCG Tablet PO SCH (19:35)
[2018-01-20] MEDS: Famotidine 20 MG Tablet PO SCH (20:27)
[2018-01-20] MEDS ORDERED: Insulin Detemir Inj 1,000 UNIT/10 ML Vial SQ SCH (21:00)
[2018-01-21] MEDS: Levothyroxine 75 MCG Tablet PO SCH (05:15)
[2018-01-21 06:25] LABS: Baso % (Auto) 0.3 % (0.0-2.0); Eos # (Auto) 0.1 th/mm3 (0.0-0.4); Eos % (Auto) 1.3 % (0.0-4.0); Hematocrit 29.9 % (35.0-46.0); Hemoglobin 9.8 gm/dL (11.6-15.3); Lymph # (Auto) 1.6 th/mm3 (1.0-4.8); Lymph % (Auto) 15.7 % (9.0-44.0); Mean Corpuscular HGB Conc 32.7 % (32.0-36.0); Mean Corpuscular Hemoglobin 28.6 pg (27.0-34.0); Mean Corpuscular Volume 87.6 fL (80.0-100.0); Mean Platelet Volume 8.5 fL (7.0-11.0); Mono # (Auto) 0.9 th/mm3 (0.0-0.9); Mono % (Auto) 8.9 % (0.0-8.0); Neut # (Auto) 7.7 th/mm3 (1.8-7.7); Neut % (Auto) 73.8 % (16.0-70.0); Platelet Count 213 th/mm3 (150-450); Red Blood Count 3.41 mil/mm3 (4.00-5.30); Red Cell Distribution Width 16.9 % (11.6-17.2); White Blood Count 10.4 th/mm3 (4.0-11.0)
--- NOTE | 2018-01-21 06:41 | P.PNOP ---
Subjective Interval history: POD 2 s/p IMN left tibia and ORIF left ankle doing well. pain controlled. no new complaints. Physical Exam Vital signs: Vital Signs 01/20/18 08:00 01/20/18 12:00 01/20/18 16:00 Temperature 97.7 F 97.5 F L 98.6 F Pulse Rate 79 81 82 Respiratory Rate 19 19 Blood Pressure 148/71 H 175/73 H 175/74 H Pulse Oximetry 100 97 97 01/20/18 20:00 01/20/18 20:08 01/21/18 00:00 Temperature 97.6 F 97.7 F Pulse Rate 83 82 98 H Respiratory Rate 18 19 Blood Pressure 121/70 171/72 H Pulse Oximetry 95 93 L 01/21/18 04:00 Temperature 97.9 F Pulse Rate 94 H Respiratory Rate 18 Blood Pressure 172/75 H Pulse Oximetry 94 L Intake & Output 01/20/18 01/20/18 01/21/18 06:59 18:59 06:59 Intake Total 50 / 50 2788 / 2788 1240 / 1240 Output Total 250 / 250 950 / 950 600 / 600 Balance -200 / -200 1838 / 1838 640 / 640 Weight 77.2 kg 77.2 kg Intake: IV 50 / 50 1058 / 1058 1000 / 1000 LR 1000 mL Inj 1,000 ML @ 50 958 / 958 mls/hr IV.CONT .Q20H [facility] Rx#: [id number] Cleocin 600 mg/NS Premix 600 mg 50 / 50 100 / 100 In 50 ml @ 100 mls/hr IV.SIG Q8H [facility] Rx#:[id number] Oral 480 / 480 240 / 240 Anesthesia Amount 1250 / 1250 Output: Urine 600 / 600 Estimated Blood Loss 100 / 100 Urine Amount (Catheter) 250 / 250 250 / 250 600 / 600 Indwelling Urethral Catheter 250 / 250 250 / 250 600 / 600 Narrative: LLE: +splint. intact. nvi - Urinary Catheter Management Indwelling Urethral Catheter Cath placed during this visit: yes, but has since been removed by the nurse Reason for continuing: Decision to DC catheter Insertion date: 01/18/18 Insertion time: 21:20 Removal date: 01/21/18 Removal time: 05:01 Results - Labs CBC & Chem 7: 01/21/18 05:08 10/16/18 06:13 Laboratory Results - last 24 hr 01/20/18 01/20/18 01/20/18 08:32 12:36 15:53 WBC RBC Hgb Hct MCV MCH MCHC RDW Plt Count MPV Neut % (Auto) Lymph % (Auto) [place] % (Auto) Eos % (Auto) Baso % (Auto) Neut # (Auto) Lymph # (Auto) [place] # (Auto) Eos # (Auto) Baso # (Auto) WBC Differential Differential Comment POC Glucose 152 H 174 H 140 H 01/20/18 01/21/18 19:58 05:08 WBC 10.4 RBC 3.41 L Hgb 9.8 L Hct 29.9 L MCV 87.6 MCH 28.6 MCHC 32.7 RDW 16.9 Plt Count 213 MPV 8.5 Neut % (Auto) 73.8 H Lymph % (Auto) 15.7 [place] % (Auto) 8.9 H Eos % (Auto) 1.3 Baso % (Auto) 0.3 Neut # (Auto) 7.7 Lymph # (Auto) 1.6 [place] # (Auto) 0.9 Eos # (Auto) 0.1 Baso # (Auto) 0.0 WBC Differential . Differential Comment Auto diff final POC Glucose 138 H - Procedures IMN left tibia with ORIF bimalleolar ankle Assessment and Plan - Assessment and Plan 1) Left Distal Tibial shaft fx with bimalleolar ankle fx s/p IMN and ORIF - POD 2 -NWB -maintain splint -elevate -CM for rehab placement. patient thinking about [facility]. agree with this plan. -DVT prophylaxis -ortho cleared for Dc to rehab when arrangements made -f/u with [facility] or [facility] in 2 weeks [facility] Prescription Drug Monitoring Database has been queried and verified prior to prescribing the controlled substance. Acute pain exception. This patient has normal, predicted, physiological, and time limited response to an adverse mechanical stimulus associated with surgery, trauma, or acute illness as described in my notes. There is a lack of alternative treatment options other than to include the prescribed narcotic treatment for this condition.
[2018-01-21 06:57] LABS: Calcium 8.3 mg/dL (8.5-10.1); Carbon Dioxide 24.9 meq/L (21.0-32.0); Potassium 3.7 meq/L (3.5-5.1)
[2018-01-21] MEDS: oxyCODONE/Acetaminophen 10/325 Tablet PO PRN ×2 (07:00→14:31)
--- NOTE | 2018-01-21 08:23 | P.PN ---
Subjective Interval history: Follow-up hypertension and anemia. She is doing okay smiling agrees to rehab. Physical Exam Vital signs: Vital Signs 01/20/18 12:00 01/20/18 16:00 01/20/18 20:00 Temperature 97.5 F L 98.6 F 97.6 F Pulse Rate 81 82 83 Respiratory Rate 19 18 Blood Pressure 175/73 H 175/74 H 121/70 Pulse Oximetry 97 97 95 01/20/18 20:08 01/21/18 00:00 01/21/18 04:00 Temperature 97.7 F 97.9 F Pulse Rate 82 98 H 94 H Respiratory Rate 19 18 Blood Pressure 171/72 H 172/75 H Pulse Oximetry 93 L 94 L Intake & Output 01/20/18 01/21/18 01/21/18 18:59 06:59 18:59 Intake Total 2788 / 2788 1240 / 1240 Output Total 950 / 950 600 / 600 Balance 1838 / 1838 640 / 640 Weight 77.2 kg Intake: IV 1058 / 1058 1000 / 1000 LR 1000 mL Inj 1,000 ML @ 50 958 / 958 mls/hr IV.CONT .Q20H [facility] Rx#: [id number] Cleocin 600 mg/NS Premix 600 mg 100 / 100 In 50 ml @ 100 mls/hr IV.SIG Q8H [facility] Rx#:[id number] Oral 480 / 480 240 / 240 Anesthesia Amount 1250 / 1250 Output: Urine 600 / 600 Estimated Blood Loss 100 / 100 Urine Amount (Catheter) 250 / 250 600 / 600 Indwelling Urethral Catheter 250 / 250 600 / 600 Narrative: Gen.: No acute distress Cardiovascular: Regular rate and rhythm. No murmurs, rubs or gallops. Respiratory: Lungs clear to auscultation bilaterally. No wheezes or rhonchi. Abdomen: Soft, nontender, nondistended. No peritoneal signs. Musculoskeletal: No gross deformities. No edema. Left lower extremity with thick clean bandage Skin: No obvious rashes or erythema. - Urinary Catheter Management Indwelling Urethral Catheter Cath placed during this visit: yes, but has since been removed by the nurse Reason for continuing: Decision to DC catheter Insertion date: 01/18/18 Insertion time: 21:20 Removal date: 01/21/18 Removal time: 05:01 Results - Labs CBC & Chem 7: 01/21/18 05:08 01/21/18 05:08 Laboratory Results - last 24 hr 01/20/18 01/20/18 01/20/18 08:32 12:36 15:53 WBC RBC Hgb Hct MCV MCH MCHC RDW Plt Count MPV Neut % (Auto) Lymph % (Auto) [place] % (Auto) Eos % (Auto) Baso % (Auto) Neut # (Auto) Lymph # (Auto) [place] # (Auto) Eos # (Auto) Baso # (Auto) WBC Differential Differential Comment Sodium Potassium Chloride Carbon Dioxide Anion Gap BUN Creatinine Estimated GFR POC Glucose 152 H 174 H 140 H Random Glucose Calcium 01/20/18 01/21/18 01/21/18 19:58 05:08 05:08 WBC 10.4 RBC 3.41 L Hgb 9.8 L Hct 29.9 L MCV 87.6 MCH 28.6 MCHC 32.7 RDW 16.9 Plt Count 213 MPV 8.5 Neut % (Auto) 73.8 H Lymph % (Auto) 15.7 [place] % (Auto) 8.9 H Eos % (Auto) 1.3 Baso % (Auto) 0.3 Neut # (Auto) 7.7 Lymph # (Auto) 1.6 [place] # (Auto) 0.9 Eos # (Auto) 0.1 Baso # (Auto) 0.0 WBC Differential . Differential Comment Auto diff final Sodium 136 Potassium 3.7 D Chloride 103 Carbon Dioxide 24.9 Anion Gap 8 BUN 18 Creatinine 1.11 H Estimated GFR 47 L POC Glucose 138 H Random Glucose 106 Calcium 8.3 L 01/21/18 07:43 WBC RBC Hgb Hct MCV MCH MCHC RDW Plt Count MPV Neut % (Auto) Lymph % (Auto) [place] % (Auto) Eos % (Auto) Baso % (Auto) Neut # (Auto) Lymph # (Auto) [place] # (Auto) Eos # (Auto) Baso # (Auto) WBC Differential Differential Comment Sodium Potassium Chloride Carbon Dioxide Anion Gap BUN Creatinine Estimated GFR POC Glucose 97 Random Glucose Calcium - Procedures IMN left tibia with ORIF bimalleolar ankle Assessment and Plan - Plan 1. Left tib/fib fracture X-ray significant for distal fibula and mid distal tibia fractures s/p IMN left tibia with ORIF bimalleolar ankle Nonweightbearing. Continue postoperative care with PT, wound care and pain management consult regarding narcotics. Orthopedic surgery recommends rehab Patient is stable 2. Diabetes mellitus Sliding-scale insulin Restart Levemir Monitor blood glucose 3. Acute on chronic kidney disease stage III. Improved Creatinine 1.55, baseline 1.1 Discontinue IV fluid hydration Monitor renal function 4. Coronary artery disease/peripheral vascular disease Patient is status post coronary artery stenting, renal artery stenting and lower extremity stenting Continue home medications. Restart antiplatelets when cleared by orthopedic surgery 5. Hypertension/hyperlipidemia. BP slightly up secondary to IV hydration and holding Lasix IV fluids discontinued. Restart Lasix since kidney function improved. Continue home medications DVT prophylaxis with Xarelto Discharge Planning: Patient medically cleared for discharge
[2018-01-21] MEDS: Insulin NovoLOG Aspart Correctional Sugar Inj SQ SCH ×2 (08:27→12:32)
[2018-01-21] MEDS: Carvedilol 12.5 MG Tablet PO SCH (08:28)
[2018-01-21] MEDS: Famotidine 20 MG Tablet PO SCH (08:28)
[2018-01-21] MEDS: Rivaroxaban 10 MG Tablet PO SCH (08:29)
[2018-01-21] MEDS ORDERED: Insulin Detemir Inj 1,000 UNIT/10 ML Vial SQ SCH (09:00)
[2018-01-21] MEDS ORDERED: Furosemide 40 MG Tablet PO SCH (09:00)
[2018-01-21] MEDS ORDERED: amLODIPine 5 MG Tablet PO SCH (09:00)
[2018-01-21] MEDS ORDERED: Citalopram 20 MG Tablet PO SCH (09:00)
--- NOTE | 2018-01-21 13:36 | P.DS ---
Date of admission: 01/18/18 22:55 Primary care physician: UNKNOWN Brief History from admission: 82-year-old female with a past medical history significant for hypertension, coronary artery disease status post stent placement, peripheral vascular disease , chronic kidney disease, diabetes mellitus and hyperlipidemia presents to the emergency department for evaluation of a left lower extremity injury. The patient reports she was sitting on the bed reaching to put close on a shelf when she slipped off the bed and fell. She has been wheelchair-bound since November 2016 when she broke her foot and subsequently developed chronic wounds. She has been seeing wound care who just released her from clinic this week. She reports that she was just cleared to start weightbearing on her left leg next week. The patient denies any loss of consciousness or head trauma. No chest pain or shortness of breath. No abdominal pain. No nausea/vomiting/ diarrhea. No fever/chills. No lateralizing signs/symptoms. DS: Medications - Discharge Medications Prescriptions: oxycodone-acetaminophen [Percocet] 1 tab PO Q4H #40 tab rivaroxaban [Xarelto] 10 mg PO DAILY #14 tab DS: Summary Hospital Course: 1. Left tib/fib fracture X-ray significant for distal fibula and mid distal tibia fractures s/p IMN left tibia with ORIF bimalleolar ankle Nonweightbearing. Continue postoperative care with PT, wound care and pain management consult regarding narcotics. Orthopedic surgery recommends rehab Patient is stable 2. Diabetes mellitus Sliding-scale insulin Restart Levemir Monitor blood glucose 3. Acute on chronic kidney disease stage III. Improved Creatinine 1.55, baseline 1.1 Discontinue IV fluid hydration Monitor renal function 4. Coronary artery disease/peripheral vascular disease Patient is status post coronary artery stenting, renal artery stenting and lower extremity stenting Continue home medications. Restart antiplatelets when cleared by orthopedic surgery 5. Hypertension/hyperlipidemia. BP slightly up secondary to IV hydration and holding Lasix IV fluids discontinued. Restart Lasix since kidney function improved. Continue home medications DVT prophylaxis with Xarelto - Time Spent with Patient Total time spent providing and/or coordinating discharge services: Greater than 30 minutes - Quality: VTE Deep Vein Thrombosis/Pulmonary Embolism Present on Admission: No Exam Vital signs: Vital Signs 01/20/18 16:00 01/20/18 20:00 01/20/18 20:08 Temperature 98.6 F 97.6 F Pulse Rate 82 83 82 Respiratory Rate 18 Blood Pressure 175/74 H 121/70 Pulse Oximetry 97 95 01/21/18 00:00 01/21/18 04:00 01/21/18 07:30 Temperature 97.7 F 97.9 F Pulse Rate 98 H 94 H Respiratory Rate 19 18 18 Blood Pressure 171/72 H 172/75 H Pulse Oximetry 93 L 94 L 01/21/18 08:00 01/21/18 12:00 Temperature 98 F 97.3 F L Pulse Rate 81 80 Respiratory Rate 16 17 Blood Pressure 118/58 L 151/65 H Pulse Oximetry 93 L 93 L Intake & Output 01/20/18 01/21/18 01/21/18 18:59 06:59 18:59 Intake Total 2788 / 2788 1240 / 1240 1000 / 1000 Output Total 950 / 950 600 / 600 Balance 1838 / 1838 640 / 640 1000 / 1000 Weight 77.2 kg Intake: IV 1058 / 1058 1000 / 1000 1000 / 1000 LR 1000 mL Inj 1,000 ML @ 50 958 / 958 1000 / 1000 mls/hr IV.CONT .Q20H [facility] Rx#: [id number] Cleocin 600 mg/NS Premix 600 mg 100 / 100 In 50 ml @ 100 mls/hr IV.SIG Q8H [facility] Rx#:[id number] Oral 480 / 480 240 / 240 Anesthesia Amount 1250 / 1250 Output: Urine 600 / 600 Estimated Blood Loss 100 / 100 Urine Amount (Catheter) 250 / 250 600 / 600 Indwelling Urethral Catheter 250 / 250 600 / 600 Other: Date of Last Bowel Movement 01/20/18 Narrative: Gen.: No acute distress Cardiovascular: Regular rate and rhythm. No murmurs, rubs or gallops. Respiratory: Lungs clear to auscultation bilaterally. No wheezes or rhonchi. Abdomen: Soft, nontender, nondistended. No peritoneal signs. Musculoskeletal: No gross deformities. No edema. Left lower extremity with thick clean bandage Skin: No obvious rashes or erythema. Results Procedures completed during hospitalization: IMN left tibia with ORIF bimalleolar ankle Labs on day of discharge: Labs from last 24 hours 01/21/18 01/21/18 01/21/18 11:57 07:43 05:08 WBC RBC Hgb Hct MCV MCH MCHC RDW Plt Count MPV Neut % (Auto) Lymph % (Auto) [place] % (Auto) Eos % (Auto) Baso % (Auto) Neut # (Auto) Lymph # (Auto) [place] # (Auto) Eos # (Auto) Baso # (Auto) WBC Differential Differential Comment Sodium 136 Potassium 3.7 D Chloride 103 Carbon Dioxide 24.9 Anion Gap 8 BUN 18 Creatinine 1.11 H Estimated GFR 47 L POC Glucose 116 H 97 Random Glucose 106 Calcium 8.3 L 01/21/18 01/20/18 01/20/18 05:08 19:58 15:53 WBC 10.4 RBC 3.41 L Hgb 9.8 L Hct 29.9 L MCV 87.6 MCH 28.6 MCHC 32.7 RDW 16.9 Plt Count 213 MPV 8.5 Neut % (Auto) 73.8 H Lymph % (Auto) 15.7 [place] % (Auto) 8.9 H Eos % (Auto) 1.3 Baso % (Auto) 0.3 Neut # (Auto) 7.7 Lymph # (Auto) 1.6 [place] # (Auto) 0.9 Eos # (Auto) 0.1 Baso # (Auto) 0.0 WBC Differential . Differential Comment Auto diff final Sodium Potassium Chloride Carbon Dioxide Anion Gap BUN Creatinine Estimated GFR POC Glucose 138 H 140 H Random Glucose Calcium - Impressions ITS Impressions Ankle X-Ray 01/18/18 20:32 CONCLUSION: 1. Fractures of the distal tibia and fibula. 2. Moderate to severe osteopenia. Chest X-Ray 01/18/18 21:05 CONCLUSION: Minimal basilar atelectasis. No effusion or pneumothorax. Tibia/Fibula X-Ray 01/19/18 00:00 CONCLUSION: Satisfactory operative appearance Discharge Plan - Discharge Disposition Patient Disposition: 62 Rehab Inpatient - Discharge Condition Condition: Fair - Discharge Order Discharge Orders: Discharge Order (Routine); Ordered 01/21/18 Ordered By: Fredy King Orthopedic Clear for Discharge (Routine); Ordered 01/21/18 Ordered By: Abelardo Raza - Discharge Details Discharge Comment: Dc after seen by me this am - Physicians Team Primary Care Provider: UNKNOWN, Attending Provider: Fredy King Other Providers: Clarke Ibarra MD ; Virgil Clark MD ; [facility]
== END 2018-01-21 15:43 ==
LOC: NEPE 19:59 → NEDA 19:59 → N07 01-19 01:43 → N06 01-19 09:32
PROVIDERS: ADMIT Internal Medicine; ATTEND Internal Medicine
PROC: ORIFTIB (2018-01-19 14:36)
DX: M85.80 Other specified disorders of bone density and structure, unspecified site; I13.0 Hypertensive heart and chronic kidney disease with heart failure and stage 1 through stage 4 chronic kidney disease, or unspecified chronic kidney disease; Z79.4 Long term (current) use of insulin; Z79.899 Other long term (current) drug therapy; Z99.3 Dependence on wheelchair; Z79.82 Long term (current) use of aspirin; W01.0XXA Fall on same level from slipping, tripping and stumbling without subsequent striking against object, initial encounter; Z83.3 Family history of diabetes mellitus; N17.9 Acute kidney failure, unspecified; E11.22 Type 2 diabetes mellitus with diabetic chronic kidney disease; I50.9 Heart failure, unspecified; E78.5 Hyperlipidemia, unspecified; S82.202A Unspecified fracture of shaft of left tibia, initial encounter for closed fracture; M86.9 Osteomyelitis, unspecified; I25.10 Atherosclerotic heart disease of native coronary artery without angina pectoris; Z95.5 Presence of coronary angioplasty implant and graft; Z88.0 Allergy status to penicillin; Z79.02 Long term (current) use of antithrombotics/antiplatelets; Z79.890 Hormone replacement therapy; Z82.49 Family history of ischemic heart disease and other diseases of the circulatory system; Z90.49 Acquired absence of other specified parts of digestive tract; S82.842A Displaced bimalleolar fracture of left lower leg, initial encounter for closed fracture; I25.2 Old myocardial infarction; N18.3 Chronic kidney disease, stage 3 (moderate)